=== PATIENT | female | born 1990 ===

== ENCOUNTER 2017-05-23 12:15 | Emergency (ER) | payer OTHER ==
[2017-05-23 12:16] VITALS: BMI 27.4
[2017-05-23 12:34] VITALS: BP 111/76; PULSE 66; RESP 18; TEMP 98.4; O2SAT 98
--- NOTE | 2017-05-23 12:53 | ED PDOC ---
Arrival/HPI - General Chief Complaint: Dizziness/Lightheaded Time Seen by Provider: 05/23/17 12:29 Historian: Patient - History of Present Illness Narrative History of Present Illness (Text): 05/23/17 12:40 Linsey Mathis is a 27 year old female, who presents to the emergency department complaining of a cyst on the left side of her face, near her ear, for the past eight months. Patient reports that it has slowly been increasing in size and recently she has been feeling headaches and dizziness. She reports the pain radiating to the left back side of her head. Patient notes she has also seen her PMD and ENT specialist, which prescribed her antibiotics. She originally had another small cyst on the right side of her face, but went away when taking the antibiotics. In addition, patient mentions sometimes having coughs that cause some mild discomfort. Patient denies shortness of breath, fever, chills, nausea, vomiting, diarrhea, abdominal pain, or other complaints. Patient also states being schedule for surgery in a couple of weeks. PMD: Dr. Muñoz Time/Duration: Other (cyst has been present for 8 months, but recently it has been a discomfort for patient) Symptom Onset: Gradual Symptom Course: Other (cyst is slowly growing causing discomfort) Modifying Factors (Text): pain is worse on palpation Associated Symptoms (Text): headache, dizziness, and cough Past Medical History - Provider Review Nursing Documentation Reviewed: Yes - Infectious Disease Hx of Infectious Diseases: None - Past Medical History Past Medical History: No Previous - Cardiac Hx Cardiac Disorders: No - Psychiatric Hx Depression: No Hx Emotional Abuse: No Hx Physical Abuse: No Hx Substance Use: No - Surgical History Hx Appendectomy: Yes - Anesthesia Hx Anesthesia: No Hx Anesthesia Reactions: No Hx Malignant Hyperthermia: No - Suicidal Assessment Feels Threatened In Home Enviroment: No Family/Social History - Physician Review Nursing Documentation Reviewed: Yes Family/Social History: Unknown Family HX Smoking Status: Light Smoker < 10 Cigarettes Daily Hx Alcohol Use: No Hx Substance Use: No Allergies/Home Meds Allergies/Adverse Reactions: Allergies No Known Allergies Allergy (Verified 07/30/13 18:20) Review of Systems - Review of Systems Constitutional: absent: Fevers ENT: Other (cyst on anterior side of left ear) Respiratory: Cough (intermittent). absent: SOB Gastrointestinal: absent: Abdominal Pain Genitourinary Female: absent: Dysuria, Frequency Musculoskeletal: absent: Neck Pain Skin: Other (cyst on anterior side of ear, left side of face) Neurological: Headache, Dizziness Endocrine: absent: Diaphoresis Physical Exam Vital Signs Reviewed: Yes Vital Signs Temp Pulse Resp BP Pulse Ox 05/23/17 12:16 98.4 F 66 18 111/76 98 Temperature: Afebrile Blood Pressure: Normal Pulse: Regular Respiratory Rate: Normal Appearance: Positive for: Well-Appearing, Non-Toxic, Comfortable Pain Distress: None Mental Status: Positive for: Alert and Oriented X 3 - Systems Exam Head: Present: Atraumatic, Normocephalic Pupils: Present: PERRL Extroacular Muscles: Present: EOMI Conjunctiva: Present: Normal Ears: Present: Normal, NORMAL TM, Normal Canal, Other (No mastoid tenderness). No: Erythema, Fluid Mouth: Present: Moist Mucous Membranes Neck: Present: Normal Range of Motion Respiratory/Chest: Present: Clear to Auscultation, Good Air Exchange. No: Respiratory Distress, Accessory Muscle Use Cardiovascular: Present: Regular Rate and Rhythm, Normal S1, S2. No: Murmurs Abdomen: Present: Normal Bowel Sounds. No: Tenderness, Distention, Peritoneal Signs Upper Extremity: Present: Normal Inspection. No: Cyanosis, Edema Lower Extremity: Present: Normal Inspection. No: Edema Neurological: Present: GCS=15, CN II-XII Intact, Speech Normal Skin: Present: Warm, Dry, Normal Color, Other (1cm fluctuant tender mass anterior to her left ear. No warmth or redness. Mild swelling.). No: Rashes Psychiatric: Present: Alert, Oriented x 3, Normal Insight, Normal Concentration Medical Decision Making ED Course and Treatment: 05/23/17 Impression: 27 year old female with 1cm fluctuate cyst vs abscess anterior to her left ear. Plan: -- Toradol -- I&D -- Reassess and disposition Progress Notes: Procedure Performed: Incision & Drainage Reevaluation: On reevaluation the patient feels better and is in no acute distress. I have discussed the results and plan with the patient, who expresses understanding. Patient given the opportunity to ask question, all questions were answered and there is agreement with the plan to discharge the patient home with prescription for Keflex and Naproxen. Patient is stable for discharge. Patient was instructed to follow up with physician/clinic in 1-2 days or return if symptoms persist/worsen or new concerning symptoms arise. - Medication Orders Current Medication Orders: Discontinued Medications Cephalexin Monohydrate (Keflex) 500 mg PO STAT STA PRN Reason: Protocol Stop: 05/23/17 13:34 Ketorolac Tromethamine (Toradol) 60 mg IM STAT STA Stop: 05/23/17 12:46 Last Admin: 05/23/17 13:09 Dose: 60 mg - Procedure PROCEDURE NOTE (Text): 05/23/17 Procedure: Incision & Drainage Performed by the emergency provider: Dr. Thompson Indication: Abscess Location: anterior left side ear Preparation: The area was prepped and draped in the usual sterile fashion and was cleansed. Local infiltration of Lidocaine 1% without Epi was used for anesthesia. Procedure: The most fluctuant portion of the abscess was incised with a #11 scalpel. Approximately 3 mL was obtained. A dressing was applied by the RN. Post-Procedure: On exam the abscess is notably less fluctuant. The patient tolerated the procedure well, and there were no complications. Cultured: NO - Scribe Statement The provider has reviewed the documentation as recorded by the Scribe 05/23/2017 Rosita Alexandre MD Scribe Attestation: All medical record entries made by the Scribe were at my direction and personally dictated by me. I have reviewed the chart and agree that the record accurately reflects my personal performance of the history, physical exam, medical decision making, and the department course for this patient. I have also personally directed, reviewed, and agree with the discharge instructions and disposition. Disposition/Present on Arrival - Present on Arrival Any Indicators Present on Arrival: No History of DVT/PE: No History of Uncontrolled Diabetes: No Urinary Catheter: No History of Decub. Ulcer: No History Surgical Site Infection Following: None - Disposition Have Diagnosis and Disposition been Completed?: Yes Diagnosis: Abscess Disposition: HOME/ ROUTINE Disposition Time: 13:35 Patient Plan: Discharge Patient Problems: Current Active Problems Problem Status Onset Abscess Acute Condition: IMPROVED Discharge Instructions (ExitCare): Abscess (ED) Additional Instructions: Ms Mathis thank you for letting us take care of you today. Your provider was Dr. Thompson. You were treated for Left Facial Abscess. The emergency medical care you received today was directed at your acute symptoms. If you were prescribed any medication, please fill it and take as directed. It may take several days for your symptoms to resolve. Return to the Emergency Department if your symptoms worsen, do not improve, or if you have any other problems. Please contact your doctor or call one of the physicians/clinics you have been referred to that are listed on the Patient Visit Information form that is included in your discharge packet. Bring any paperwork you were given at discharge with you along with any medications you are taking to your follow up visit. Our treatment cannot replace ongoing medical care by a primary care provider (PCP) outside of the emergency department. Thank you for allowing the [facility] team to be part of your care today. If you had an X-Ray or CT scan: A Radiologist will review the ED reading if any change in treatment is needed we will contact you. If you had a blood, urine, or wound culture: It will take several days for the results, if any change in treatment is needed we will contact you. If you had an STI test: It will take 48 hours for the results. Please call after 1 week if you have not heard back. Prescriptions: Cephalexin [Keflex] 500 mg PO QID #20 capsule Naproxen 500 mg PO BID PRN #30 tab PRN Reason: Pain, Moderate (4-7) Referrals: [facility] Scooby Steiner, [Primary Care Provider] - Follow up with primary Forms: [employer] (Kosovan), WORK NOTE
== END 2017-05-23 14:00 | disposition home or self-care (01) ==
LOC: ED 12:15
DX: H60.02 Abscess of left external ear (principal)
CPT/HCPCS: 10060; 96372; 99284; J1885